=== PATIENT | male | born 1995 | race Caucasian/White ===

== ENCOUNTER 2024-11-18 14:16 | Emergency (ER) | payer OTHER ==
[~2024-11-18] VITALS: Ht 175.3 cm; Wt 105.0 kg
[2024-11-18 14:19] VITALS: O2SAT 99
[2024-11-18 14:27] VITALS: BP 136/83; PULSE 55; RESP 16; TEMP 37.1; O2SAT 100
[2024-11-18] MEDS ORDERED: ERYT1OIN6 RIGHTEYE (16:00)
== END 2024-11-18 16:04 | disposition home or self-care (01) ==
LOC: ER 14:16
DX: H00.029 Hordeolum internum unspecified eye, unspecified eyelid (principal)
CPT/HCPCS: 99283

== ENCOUNTER 2024-12-01 13:00 | Emergency (ER) | payer OTHER ==
[~2024-12-01] VITALS: Ht 175.3 cm; Wt 104.0 kg
[~2024-12-01 13:00] MED LIST: ERYT1OIN6 RIGHTEYE
[2024-12-01 13:04] VITALS: O2SAT 98
[2024-12-01 15:07] LABS: INFLUENZA TYPE A Presumptive Negative (Pres. Neg.)
[2024-12-01 15:08] LABS: INFLUENZA TYPE B Presumptive Negative (Pres. Neg.)
[2024-12-01] MEDS: KETOROLAC 15MG/ML VIAL IV ONE (15:08)
[2024-12-01] MEDS: ACETAMINOPHEN 500MG TABLET PO ONE (15:09)
[2024-12-01 15:14] LABS: RESPIRATORY SYNCYTIAL VIRUS Detected (Not Detectd)
[2024-12-01 15:35] LABS: BASOPHILS % 0.4 % (0.0-2.0); EOSINOPHILS % 1.3 % (0.0-5.0); HEMATOCRIT. 41.4 % (42.0-52.0); HEMOGLOBIN. 14.2 g/dL (14.0-18.0); LYMPHOCYTES % 12.9 % (20.0-50.0); MEAN PLATELET VOLUME 8.1 fl (7.4-10.4); MONOCYTES % 11.7 % (2.0-8.0); NEUTROPHILS % 73.7 % (40.0-76.0); PLATELET 238 x1000/uL (130-400); RED BLOOD CELL COUNT 4.80 mill/uL (4.7-6.1); RED CELL DISTRIBUTION WIDTH 13.2 % (11.6-14.6)
[2024-12-01 15:48] LABS: CREATININE 1.1 mg/dL (0.6-1.3); UREA NITROGEN BLOOD 9 mg/dL (9-23)
[2024-12-01 15:50] LABS: ASPARTATE AMINOTRANSFERASE 16 IU/L (<34); BILIRUBIN DIRECT 0.4 mg/dL (<=3.0); BILIRUBIN TOTAL 1.2 mg/dL (0.1-1.0); PROTEIN TOTAL 7.2 g/dL (6.0-8.3)
[2024-12-01] MEDS: DEXAMETHASONE 10 MG/ML VIAL IV ONE (18:45)
[2024-12-01] MEDS: SODIUM CHLORIDE 0.9% (SEPSIS BOLUS) IV ONE (18:45)
[2024-12-01] MEDS: CLINDAMYCIN 600MG PREMIX 50 ML IV ONE (18:46)
[2024-12-01] MEDS ORDERED: CLIN-194 MT (21:45)
[2024-12-01] MEDS ORDERED: CLIN-116 MT (21:45)
[2024-12-01 22:05] VITALS: BP 138/73; PULSE 81; RESP 19; TEMP 37.1; O2SAT 98
[2024-12-01 22:12] LABS: CLARITY URINE CLEAR (CLEAR); COLOR URINE YELLOW (YELLOW); GLUCOSE URINE NEGATIVE (NEGATIVE); KETONES URINE 2+ (NEGATIVE); LEUKOCYTE ESTERASE URINE NEGATIVE (NEGATIVE); NITRITE URINE NEGATIVE (NEGATIVE); OCCULT BLOOD URINE NEGATIVE (NEGATIVE); PH URINE 7.0 (4.5-8.0); PROTEIN URINE TRACE (NEGATIVE); SPECIFIC GRAVITY URINE 1.062 (1.005-1.030); UROBILINOGEN URINE 0.2 E.U./dL (0.2-1.0)
[2024-12-01 22:17] LABS: BACTERIA URINE RARE; RBC URINE NONE SEEN /hpf (0-2); SQUAMOUS EPITHELIAL CELL URINE RARE /lpf (RARE/1+); WBC URINE 0-2 /hpf (0-2)
[2024-12-01] MEDS ORDERED: IOHEXOL-300 100 ML BOTTLE ONE (22:31)
[2024-12-03 17:07] LABS: CHLAMYDIA TRACHOMATIS NAA Negative (Negative); NEISSERIA GONORRHOEAE NAA Negative (Negative)
== END 2024-12-01 22:17 | disposition left against medical advice (07) ==
LOC: ER 13:06 → CMPBEDREQ 12-02 08:00
DX: J36 Peritonsillar abscess (principal); Z20.822 Contact with and (suspected) exposure to COVID-19; Z79.899 Other long term (current) drug therapy
CPT/HCPCS: 99285; 96365; 70491; 96375; 87426; 87491; 87591; 80076; 80048; 81003; 87430; 83605; 85025; 87420; 87040; 87086; 87804 ×2; 36415; 93005; 87070; J1885; Q9967; J1100; J3490; J7030; A4606